=== PATIENT | male | born 1965 | race Caucasian/White ===

== ENCOUNTER 2020-05-19 15:34 | Inpatient (IN) | payer OTHER ==
--- NOTE | 2020-05-19 15:50 | BHS.RME ---
Substance Use & Tx History - Substance Use History Heroin Substance amount: one bag Frequency of use: Less than 3 times per week Substance route: Inhalation (ex: sniffing or snorting) Date of Last Use: 05/18/20 Xanax Substance amount: 4 tabs of ? 2 or 5 mg Frequency of use: Daily Substance route: Oral Date of Last Use: 05/19/20 - Last Treatment Date of last treatment: 2009 Where was last treatment: Detox Physical/Psych/Mental Status - Behavior General Behavior: Decreased activity Eye Contact: Normal - Cooperativeness Cooperativeness: Cooperative - Thinking Thought Processes: Tight Thought content: Future oriented - Physical Health Problems Is patient presently having any pain?: No Does patient presently have any injuries (include location): No Does patient currently have a fever: No CIWA Nausea/Vomitin-No Nausea/No Vomiting Muscle Tremors: None Anxiety: 3 Agitation: 0-Normal Activity Paroxysmal Sweats: 2 Orientation: 0-Oriented Tacttile Disturbances: 0-None Auditory Disturbances: 1-Very Mild Visual Disturbances: 2-Mild Sensitivity Headache: 4-Moderately Severe CIWA-Ar Total Score: 12
--- NOTE | 2020-05-19 18:49 | HP ---
CIWA Score Nausea/Vomitin Muscle Tremors: 3 Anxiety: 3 Agitation: 2 Paroxysmal Sweats: 2 Orientation: 0-Oriented Tacttile Disturbances: 0-None Auditory Disturbances: 0-None Visual Disturbances: 0-None Headache: 4-Moderately Severe CIWA-Ar Total Score: 16 - Admission Criteria [facility]ASAS Guidelines: Admission for Medically Managed Detox: Requires at least one of the followin. CIWA greater than 12 2. Seizures within the past 24 hours 3. Delirium tremens within the past 24 hours 4. Hallucinations within the past 24 hours 5. Acute intervention needed for co occurring medical disorder 6. Acute intervention needed for co occurring psychiatric disorder 7. Severe withdrawal that cannot be handled at a lower level of care (continued vomiting, continued diarrhea, abnormal vital signs) requiring intravenous medication and/or fluids 8. Admission ROS [facility] Chief Complaint: Seeking admission to detox from benzodiazepine, on MMTP. Allergies/Adverse Reactions: Allergies Allergy/AdvReac Type Severity Reaction Status Date / Time Penicillins Allergy Severe Hives Verified 05/19/20 19:13 aspirin Allergy Intermediate Rash Verified 05/19/20 19:14 seafood AdvReac Severe Difficulty Uncoded 05/19/20 19:15 Breathing History of Present Illness: 55 years old male with 20 years of benzodiazepine dependence is seeking admission to detox. His last admission was for the period 06/07/2010-06/11/2010. He reports that he was on prescribed benzodiazepine but was kicked out by his provider Dr. Umm Baltazar and he has been buying Xanax from the street. He uses 6mg tablet Xanax daily. He has medical history of HIV+, Hep. C, cirrhosis of the liver, asthma, anemia, COPD,hypertension, benzodiazepine related seizures, BPH and psych. history of bipolar disorder. He denies suicidal ideation at this time. Patient is unemployed (on SSI), lives alone in a room and denies any legal issues. He reports seizure related to benzodiazepine use and heroin overdose. Patient is on Methadone 130mg tablet oral daily with [facility], [place] Dose is yet to be verified by the nurse. Patient reports that he is on multiple medications for his multiple diagnosis but he does not remember his medications and dosages. Exam Limitations: No Limitations - Ebola screening Have you traveled outside of the country in the last 21 days: No Have you had contact with anyone from an Ebola affected area: No Have you been sick,other than usual withdrawal symptoms: No Do you have a fever: No - Review of Systems Constitutional: Malaise, Night Sweats, Changes in sleep EENT: reports: No Symptoms Reported Respiratory: reports: No Symptoms reported Cardiac: reports: No Symptoms Reported GI: reports: Diarrhea (x 2), Nausea, Poor Appetite, Poor Fluid Intake, Vomiting, Abdominal cramping : reports: No Symptoms Reported Musculoskeletal: reports: Other (abdominal pain) Integumentary: reports: Dryness, Flushing Neuro: reports: Headache, Tremors Endocrine: reports: No Symptoms Reported Hematology: reports: No Symptoms Reported Psychiatric: reports: Orientated x3, Anxious, Depressed Other Systems: Reviewed and Negative Patient History - Patient Medical History Hx Anemia: Yes (Not on medication) Hx Asthma: Yes (Not on medication) Hx Chronic Obstructive Pulmonary Disease (COPD): Yes Hx Cancer: No Hx Cardiac Disorders: No Hx Congestive Heart Failure: No Hx Hypertension: Yes (Lisinoppril) Hx Hypercholesterolemia: No Hx Pacemaker: No HX Cerebrovascular Accident: No Hx Seizures: Yes (Benzo related seizures) Hx Diabetes: No Hx Gastrointestinal Disorders: No Hx Liver Disease: Yes (Hep C, cirrhosis of the liver) Hx Genitourinary Disorders: Yes (BPH) Hx Sexually Transmitted Disorders: No Hx Renal Disease (ESRD): No Hx Thyroid Disease: No Hx Human Immunodeficiency Virus (HIV): Yes (Diagnosed 1988) Hx Hepatitis C: Yes (Hep. C) Hx Depression: No Hx Suicide Attempt: No (Denies suicidal ideation at this time) Hx Bipolar Disorder: Yes Hx Schizophrenia: No - Patient Surgical History Past Surgical History: No - PPD History Previous Implant?: No Documented Results: Negative w/o proof PPD to be Administered?: Yes - Reproductive History Patient is a Female of Child Bearing Age (11 -55 yrs old): No (Male) - Smoking Cessation Smoking history: Never smoked Have you smoked in the past 12 months: No Hx Chewing Tobacco Use: No Initiated information on smoking cessation: No - Substance & Tx. History Hx Alcohol Use: No Hx Substance Use: Yes Substance Use Type: Heroin, Tranquilizers Hx Substance Use Treatment: Yes - Substances abused Alprazolam (Xanax) Substance route: Oral Frequency: Daily Amount used: 6mg tablet Age of first use: 24 Date of last use: 05/19/20 Heroin Substance route: Inhalation Frequency: 1-2 times per week Amount used: 1 bag Age of first use: 19 Date of last use: 05/17/20 Admission Physical Exam [facility] - Physical General Appearance: Yes: Moderate Distress, Tremorous, Irritable, Anxious HEENTM: Yes: Within Normal Limits Respiratory: Yes: Lungs Clear, Normal Breath Sounds, No Respiratory Distress Neck: Yes: Within Normal Limits Breast: Yes: Breast Exam Deferred Cardiology: Yes: Regular Rhythm, Regular Rate Abdominal: Yes: Normal Bowel Sounds Genitourinary: Yes: Within Normal Limits Back: Yes: Normal Inspection Musculoskeletal: Yes: Other (abdomnial pain) Extremities: Yes: Tremors Neurological: Yes: Within Normal Limits Integumentary: Yes: Warm Lymphatic: Yes: Within Normal Limits - Diagnostic (1) Anemia Current Visit: Yes Status: Chronic Qualifiers: Anemia type: unspecified type Qualified Code(s): D64.9 - Anemia, unspecified (2) Asthma Current Visit: Yes Status: Chronic Qualifiers: Asthma severity: mild Asthma persistence: intermittent (3) Hep C w/ coma, chronic Current Visit: Yes Status: Chronic (4) HIV (human immunodeficiency virus infection) Current Visit: Yes Status: Chronic Qualifiers: HIV symptom status: unspecified Qualified Code(s): B20 - Human immunodeficiency virus [HIV] disease (5) Cirrhosis of liver Current Visit: Yes Status: Chronic Qualifiers: Hepatic cirrhosis type: unspecified hepatic cirrhosis Ascites presence: unspecified Qualified Code(s): K74.60 - Unspecified cirrhosis of liver (6) Hypertension Current Visit: Yes Status: Chronic Qualifiers: Hypertension type: essential hypertension Qualified Code(s): I10 - Essential (primary) hypertension (7) BPH (benign prostatic hyperplasia) Current Visit: Yes Status: Chronic (8) Seizures Current Visit: Yes Status: Chronic (9) COPD (chronic obstructive pulmonary disease) Current Visit: Yes Status: Acute Qualifiers: COPD type: unspecified COPD Qualified Code(s): J44.9 - Chronic obstructive pulmonary disease, unspecified (10) Bipolar disorder Current Visit: Yes Status: Chronic Qualifiers: Active/Remission status: remission status unspecified Qualified Code(s): F31.9 - Bipolar disorder, unspecified Cleared for Admission [facility] - Detox or Rehab [facility] Level of Care: Medically Managed Detox Regimen/Protocol: Ativan Claeared for Rehab Admission: No Inpatient Rehab Admission - Rehab Decision to Admit Inpatient rehab admission?: No
[2020-05-19] MEDS ORDERED: MENTHOL/PHENOL 1 EACH UD MM PRN (19:52)
[2020-05-19] MEDS ORDERED: METHOCARBAMOL 500 MG TABLET PO PRN (19:52)
[2020-05-19] MEDS ORDERED: ACETAMINOPHEN 325 MG TABLET (FP) PO PRN ×2 (19:52)
[2020-05-19] MEDS ORDERED: MAGNESIUM CITRATE 300 ML BOTTLE PO PRN (19:52)
[2020-05-19] MEDS ORDERED: MAGNESIUM HYDROX 2400MG/30ML ORAL SUSPENSION 30 ML CUP PO PRN (19:52)
[2020-05-19] MEDS ORDERED: ONDANSETRON *ODT* 4 MG TABLET SL PRN (19:52)
[2020-05-19] MEDS ORDERED: MAG HYDROX/AL HYDROX/SIMETH 30 ML UNIT-DOSE CUP PO PRN (19:52)
[2020-05-19 19:54] VITALS: BMI 30.6
[2020-05-19] MEDS: THIAMINE HCL 100 MG TABLET (FP) PO SCH (22:06)
[2020-05-19] MEDS: LORazepam 2 MG TABLET PO SCH (22:07)
[2020-05-19] MEDS: MELATONIN 5 MG TABLETS PO SCH (22:07)
[2020-05-20] MEDS: LORazepam 1 MG TABLET PO PRN ×2 (00:10→19:37)
[2020-05-20] MEDS: LORazepam 2 MG TABLET PO SCH ×4 (06:12→22:22)
[2020-05-20] MEDS ORDERED: METHADONE HCL 10 MG TABLET PO SCH (09:00)
[2020-05-20] MEDS: PRENATAL VITAMINS W/ FOLIC ACID TABLET (FP) PO SCH (09:32)
[2020-05-20] MEDS ORDERED: METHADONE HCL 10 MG TABLET ONE (11:47)
[2020-05-20] MEDS ORDERED: METHADONE HCL 40 MG DISPERSABLE TABLET ONE (11:48)
[2020-05-20] MEDS: METHADONE 120 MG, METHADONE 10 MG PO SCH (11:49)
--- NOTE | 2020-05-20 11:55 | PN ---
S CIWA - CIWA Score Nausea/Vomitin-No Nausea/No Vomiting Muscle Tremors: 4-Moderate,w/Arms Extend Anxiety: 3 Agitation: 2 Paroxysmal Sweats: 3 Orientation: 0-Oriented Tacttile Disturbances: 0-None Auditory Disturbances: 0-None Visual Disturbances: 0-None Headache: 0-None Present CIWA-Ar Total Score: 12 BHS Progress Note (SOAP) Subjective: Complaints of tremors, chills, anxiety and sweats. Objective: 05/20/20 11:53 Vital Signs 05/20/20 05/20/20 06:00 08:29 Temperature 98 F 96.9 F L Pulse Rate 60 74 Respiratory 18 16 Rate Blood Pressure 136/77 145/81 O2 Sat by Pulse 99 Oximetry (%) Labs pending. Assessment: 05/20/20 11:54 Patient seen and examined, alert and oriented x3, in acute respiratory distress. Full ROM, ambulatory in the unit without assistance. Skin warm to touch without lesions. withdrawal symptoms. Plan: Continue detox protocol. Methadone dosage 130mg was confirmed and started this morning.
[2020-05-20 12:00] LABS: HEMATOCRIT 34.7 % (35.4-49); HEMOGLOBIN 11.8 GM/dL (11.7-16.9); MCH 31.1 pg (25.7-33.7); MEAN CELL VOLUME 91.3 fl (80-96); MEAN PLT VOLUME 8.4 fl (7.5-11.1); PLATELET COUNT 59 K/MM3 (134-434); RDW 13.2 % (11.9-15.9); WHITE BLOOD COUNT 2.1 K/mm3 (4.0-10.0)
[2020-05-20 12:09] LABS: ALBUMIN 4.1 g/dl (3.4-5.0); BILIRUBIN,TOTAL 0.8 mg/dL (0.2-1); BLOOD UREA NITROGEN 30.1 mg/dL (7-18); CALCIUM 8.9 mg/dL (8.5-10.1); CREATININE 2.3 mg/dL (0.55-1.3); POTASSIUM 4.4 mmol/L (3.5-5.1); TOT PROT 8.2 g/dl (6.4-8.2)
--- NOTE | 2020-05-20 14:42 | CONSULT ---
[facility] Psychiatric Consult - Data Date of interview: 05/20/20 Admission source: [facility] Identifying data: Patient is a 55 year old single male, without children, unemployed, domiciled, and is supported with [facility]. Patient admitted to for benzodiazepine dependence. Substance Abuse History: - Smoking Cessation. Smoking history: Never smoked. Have you smoked in the past 12 months: No. Hx Chewing Tobacco Use: No. Initiated information on smoking cessation: No. - Substance & Tx. History. Hx Alcohol Use: No. Hx Substance Use: Yes. Substance Use Type: Heroin, Tranquilizers. Hx Substance Use Treatment: Yes. - Substances abused. Alp razolam (Xanax). Substance route: Oral. Frequency: Daily. Amount used: 6mg tablet. Age of first use: 24. Date of last use: 05/19/20. Heroin. Substance route: Inhalation. Frequency: 1-2 times per week. Amount used: 1 bag. Age of first use: 19. Date of last use: 05/17/20 Medical History: Anemia, asthma, hypertension, Hep C, Seizures ( benzo related) Psychiatric History: Mr. Burris denies history of psychiatric hospitalizations and suicide attempt. States that he was seeing a private psychiatrist in the [place], [place] for several months this year who prescribed him klonopin for anxiety. Patient is no longer in psychiatric care. At present patient reports stable mood. Physical/Sexual Abuse/Trauma History: denies. Additional Comment: Patient states that he is prescribed Methadone 130mg from [facility]. Mental Status Exam - Mental Status Exam Alert and Oriented to: Time, Place, Person Cognitive Function: Good Patient Appearance: Well Groomed Mood: Withdrawn Affect: Mood Congruent Patient Behavior: Fatigued, Cooperative Speech Pattern: Clear Voice Loudness: Mildly Soft/Quiet Thought Process: Goal Oriented Thought Disorder: Not Present Hallucinations: Denies Suicidal Ideation: Denies Homicidal Ideation: Denies Insight/Judgement: Poor Sleep: Fair Appetite: Fair Muscle strength/Tone: Normal Gait/Station: Normal Psychiatric Findings - Problem List ([place] 1, 2,3) (1) Sedative hypnotic or anxiolytic dependence Current Visit: Yes Status: Acute (2) Methadone maintenance therapy patient Current Visit: Yes Status: Acute - Initial Treatment Plan Initial Treatment Plan: Psychoeducation provided. Detoxification in progress. Observation.
[2020-05-20] MEDS: MELATONIN 5 MG TABLETS PO SCH (22:22)
[2020-05-20] MEDS: THIAMINE HCL 100 MG TABLET (FP) PO SCH (22:22)
[2020-05-21] MEDS ORDERED: METHADONE HCL 40 MG DISPERSABLE TABLET ONE (04:30)
[2020-05-21] MEDS ORDERED: METHADONE HCL 10 MG TABLET ONE (04:30)
[2020-05-21] MEDS: METHADONE 120 MG, METHADONE 10 MG PO SCH (05:18)
[2020-05-21] MEDS: LORazepam 1 MG TABLET PO SCH ×4 (05:18→22:06)
--- NOTE | 2020-05-21 07:12 | EKG ---
Test Reason : Blood Pressure : / mmHG Vent. Rate : 066 BPM Atrial Rate : 066 BPM P-R Int : 154 ms QRS Dur : 088 ms QT Int : 418 ms P-R-T Axes : 057 028 058 degrees QTc Int : 438 ms NORMAL SINUS RHYTHM NORMAL ECG NO PREVIOUS ECGS AVAILABLE BASELINE ARTIFACT Confirmed by LONI CERVANTES, GERALD ([id number]) on 05/21/2020 7:12:16 AM Referred By: Confirmed By:GERALD IVEY MD
[2020-05-21] MEDS: PRENATAL VITAMINS W/ FOLIC ACID TABLET (FP) PO SCH (10:10)
--- NOTE | 2020-05-21 10:44 | PN ---
[facility] CIWA - CIWA Score Nausea/Vomitin-No Nausea/No Vomiting Muscle Tremors: 3 Anxiety: 3 Agitation: 2 Paroxysmal Sweats: 3 Orientation: 0-Oriented Tacttile Disturbances: 0-None Auditory Disturbances: 0-None Visual Disturbances: 0-None Headache: 0-None Present CIWA-Ar Total Score: 11 S Progress Note (SOAP) Subjective: Complaints of anxiety, sweats, tremors and chills. Objective: 05/21/20 10:43 Vital Signs 05/21/20 05/21/20 05:00 09:11 Temperature 97.1 F L 98.1 F Pulse Rate 66 74 Respiratory 18 18 Rate Blood Pressure 123/87 123/60 O2 Sat by Pulse 99 99 Oximetry (%) Laboratory Last Values WBC 2.1 K/mm3 (4.0-10.0) L 05/20/20 07:30 RBC 3.80 M/mm3 (4.00-5.60) L 05/20/20 07:30 Hgb 11.8 GM/dL (11.7-16.9) 05/20/20 07:30 Hct 34.7 % (35.4-49) L 05/20/20 07:30 MCV 91.3 fl (80-96) 05/20/20 07:30 MCH 31.1 pg (25.7-33.7) 05/20/20 07:30 MCHC 34.0 g/dl (32.0-35.9) 05/20/20 07:30 RDW 13.2 % (11.9-15.9) 05/20/20 07:30 Plt Count 59 K/MM3 (134-434) L 05/20/20 07:30 MPV 8.4 fl (7.5-11.1) 05/20/20 07:30 Sodium 140 mmol/L (136-145) 05/20/20 07:30 Potassium 4.4 mmol/L (3.5-5.1) 05/20/20 07:30 Chloride 107 mmol/L (98-107) 05/20/20 07:30 Carbon Dioxide 29 mmol/L (21-32) 05/20/20 07:30 Anion Gap 5 MMOL/L (8-16) L 05/20/20 07:30 BUN 30.1 mg/dL (7-18) H 05/20/20 07:30 Creatinine 2.3 mg/dL (0.55-1.3) H 05/20/20 07:30 Est GFR (CKD-EPI)AfAm 35.47 05/20/20 07:30 Est GFR (CKD-EPI)NonAf 30.60 05/20/20 07:30 Random Glucose 95 mg/dL (74-106) 05/20/20 07:30 Calcium 8.9 mg/dL (8.5-10.1) 05/20/20 07:30 Total Bilirubin 0.8 mg/dL (0.2-1) 05/20/20 07:30 AST 20 U/L (15-37) 05/20/20 07:30 ALT 17 U/L (13-61) 05/20/20 07:30 Alkaline Phosphatase 111 U/L (45-117) 05/20/20 07:30 Total Protein 8.2 g/dl (6.4-8.2) 05/20/20 07:30 Albumin 4.1 g/dl (3.4-5.0) 05/20/20 07:30 Syphilis Serology Non-reactive (NONREACTIVE) 05/20/20 07:30 05/21/20 10:44 Labs noted with elevated BUN/CR. Assessment: 05/21/20 10:45 Alert and oriented x3, in no acute respiratory distress. Full ROM, ambulating in the unit without assistance. Withdrawal symptoms. Elevated BUN/CR. Plan: Continue detox protocol encourage increased fluid intake. Repeat BMP in AM.
[2020-05-21] MEDS: LORazepam 1 MG TABLET PO PRN (19:50)
[2020-05-21] MEDS: MELATONIN 5 MG TABLETS PO SCH (22:07)
[2020-05-21] MEDS: THIAMINE HCL 100 MG TABLET (FP) PO SCH (22:07)
[2020-05-22] MEDS ORDERED: LORazepam 0.5 MG TABLET PO PRN
[2020-05-22] MEDS ORDERED: METHADONE HCL 10 MG TABLET ONE (04:17)
[2020-05-22] MEDS ORDERED: METHADONE HCL 40 MG DISPERSABLE TABLET ONE (04:18)
[2020-05-22] MEDS: LORazepam 0.5 MG TABLET PO SCH ×4 (05:12→22:16)
[2020-05-22] MEDS: METHADONE 120 MG, METHADONE 10 MG PO SCH (05:12)
[2020-05-22] MEDS: PRENATAL VITAMINS W/ FOLIC ACID TABLET (FP) PO SCH (10:09)
[2020-05-22 10:58] LABS: BLOOD UREA NITROGEN 26.9 mg/dL (7-18); CALCIUM 8.5 mg/dL (8.5-10.1); POTASSIUM 5.1 mmol/L (3.5-5.1)
--- NOTE | 2020-05-22 11:44 | PN ---
S CIWA - CIWA Score Nausea/Vomitin-Mild Nausea/No Vomiting Muscle Tremors: 2 Anxiety: 2 Agitation: 1-Slight > Activity Paroxysmal Sweats: No Perspiration Orientation: 0-Oriented Tacttile Disturbances: 0-None Auditory Disturbances: 0-None Visual Disturbances: 0-None Headache: 1-Very Mild CIWA-Ar Total Score: 7 BHS Progress Note (SOAP) Subjective: alert,irritable,anxious,interrupted sleep,aching pain Objective: 05/22/20 13:50 Vital Signs Temperature 97.5 F L 05/22/20 12:52 Pulse Rate 64 05/22/20 12:52 Respiratory Rate 18 05/22/20 12:52 Blood Pressure 137/79 05/22/20 12:52 O2 Sat by Pulse Oximetry (%) 97 05/22/20 12:52 05/22/20 07:25 Sodium 138 Potassium 5.1 Chloride 106 Carbon Dioxide 27 Anion Gap 6 L BUN 26.9 H Creatinine 2.0 H Assessment: 05/22/20 13:51 withdrawal symptom, Plan: continue detox ativan regimen,encourage fluid,continue methadone 130 mgs po daily maintenance,discharge in am
[2020-05-22] MEDS: THIAMINE HCL 100 MG TABLET (FP) PO SCH (22:16)
[2020-05-22] MEDS: MELATONIN 5 MG TABLETS PO SCH (22:17)
[2020-05-23] MEDS ORDERED: METHADONE HCL 10 MG TABLET ONE (04:27)
[2020-05-23] MEDS ORDERED: METHADONE HCL 40 MG DISPERSABLE TABLET ONE (04:28)
[2020-05-23] MEDS ORDERED: LORazepam 0.5 MG TABLET PO ONE (05:00)
[2020-05-23] MEDS: METHADONE 120 MG, METHADONE 10 MG PO SCH (05:38)
[2020-05-23 06:08] VITALS: BP 140/93; PULSE 66; TEMP 98
--- NOTE | 2020-05-23 09:38 | DS ---
[facility] Detox Discharge Summary Admission Date: 05/19/20 Discharge Date: 05/23/20 - History Present History: Sedative Dependence, MMTP Additional Comments: alert,oriented x 3 ambulation on the unit lung clear on auscultation bilaterally abdomen soft,no pain detox completed,no withdrawal symptom stable for discharge declined rehab advise to continue hydration,follow up with medical providers for medical issue including leukopenia and renal insufficiency patient also going to follow up with methadone maintenance clinic total time spending on discharge 35 minutes Pertinent Past History: copd seizure withdrawal hiv hepatitis c history of bipolar disorder - Physical Exam Results Vital Signs: Vital Signs Temperature 98.0 F 05/23/20 06:08 Pulse Rate 66 05/23/20 06:08 Respiratory Rate 20 05/23/20 06:08 Blood Pressure 140/93 05/23/20 06:08 O2 Sat by Pulse Oximetry (%) 98 05/23/20 06:08 Pertinent Admission Physical Exam Findings: withdrawal signs and symptom Vital Signs Temperature 98.0 F 05/23/20 06:08 Pulse Rate 66 05/23/20 06:08 Respiratory Rate 20 05/23/20 06:08 Blood Pressure 140/93 05/23/20 06:08 O2 Sat by Pulse Oximetry (%) 98 05/23/20 06:08 Laboratory Last Values WBC 2.1 K/mm3 (4.0-10.0) L 05/20/20 07:30 RBC 3.80 M/mm3 (4.00-5.60) L 05/20/20 07:30 Hgb 11.8 GM/dL (11.7-16.9) 05/20/20 07:30 Hct 34.7 % (35.4-49) L 05/20/20 07:30 MCV 91.3 fl (80-96) 05/20/20 07:30 MCH 31.1 pg (25.7-33.7) 05/20/20 07:30 MCHC 34.0 g/dl (32.0-35.9) 05/20/20 07:30 RDW 13.2 % (11.9-15.9) 05/20/20 07:30 Plt Count 59 K/MM3 (134-434) L 05/20/20 07:30 MPV 8.4 fl (7.5-11.1) 05/20/20 07:30 Sodium 138 mmol/L (136-145) 05/22/20 07:25 Potassium 5.1 mmol/L (3.5-5.1) 05/22/20 07:25 Chloride 106 mmol/L (98-107) 05/22/20 07:25 Carbon Dioxide 27 mmol/L (21-32) 05/22/20 07:25 Anion Gap 6 MMOL/L (8-16) L 05/22/20 07:25 BUN 26.9 mg/dL (7-18) H 05/22/20 07:25 Creatinine 2.0 mg/dL (0.55-1.3) H 05/22/20 07:25 Est GFR (CKD-EPI)AfAm 41.99 05/22/20 07:25 Est GFR (CKD-EPI)NonAf 36.23 05/22/20 07:25 Random Glucose 93 mg/dL (74-106) 05/22/20 07:25 Calcium 8.5 mg/dL (8.5-10.1) 05/22/20 07:25 Total Bilirubin 0.8 mg/dL (0.2-1) 05/20/20 07:30 AST 20 U/L (15-37) 05/20/20 07:30 ALT 17 U/L (13-61) 05/20/20 07:30 Alkaline Phosphatase 111 U/L (45-117) 05/20/20 07:30 Total Protein 8.2 g/dl (6.4-8.2) 05/20/20 07:30 Albumin 4.1 g/dl (3.4-5.0) 05/20/20 07:30 Syphilis Serology Non-reactive (NONREACTIVE) 05/20/20 07:30 COVID-19 ([facility]) Not detected (Not Detected) 05/19/20 19:50 - Medication Discharge Medications: Ambulatory Orders NK [No Known Home Medication] 05/19/20 - Diagnosis (1) Sedative hypnotic or anxiolytic dependence Status: Acute (2) COPD (chronic obstructive pulmonary disease) Status: Acute Qualifiers: COPD type: unspecified COPD Qualified Code(s): J44.9 - Chronic obstructive pulmonary disease, unspecified (3) Methadone maintenance therapy patient Status: Acute (4) BPH (benign prostatic hyperplasia) Status: Chronic (5) HIV (human immunodeficiency virus infection) Status: Chronic Qualifiers: HIV symptom status: unspecified Qualified Code(s): B20 - Human immunodeficiency virus [HIV] disease (6) Hep C w/ coma, chronic Status: Chronic (7) Hypertension Status: Chronic Qualifiers: Hypertension type: essential hypertension Qualified Code(s): I10 - Essential (primary) hypertension (8) Seizures Status: Chronic (9) H/O renal insufficiency syndrome Status: Acute (10) Leukopenia Status: Acute - AMA Did Patient Leave Against Medical Advice: No
--- NOTE | 2020-05-23 09:38 | PN ---
[facility] CIWA - CIWA Score Nausea/Vomitin-No Nausea/No Vomiting Muscle Tremors: None Anxiety: 1-Mildly Anxious Agitation: 0-Normal Activity Paroxysmal Sweats: No Perspiration Orientation: 0-Oriented Tacttile Disturbances: 0-None Auditory Disturbances: 0-None Visual Disturbances: 0-None Headache: 0-None Present CIWA-Ar Total Score: 1 S Progress Note (SOAP) Subjective: alert,no complaint Objective: 05/23/20 10:44 Vital Signs Temperature 98.0 F 05/23/20 06:08 Pulse Rate 66 05/23/20 06:08 Respiratory Rate 20 05/23/20 06:08 Blood Pressure 140/93 05/23/20 06:08 O2 Sat by Pulse Oximetry (%) 98 05/23/20 06:08 Assessment: 05/23/20 10:44 detox completed,no withdrawal symptom Plan: stable for discharge today,follow up with after care program as arrangement
== END 2020-05-23 09:10 | disposition home or self-care (01) | DRG 773 ==
LOC: YASAS 15:34 → Y6N 19:24
PROVIDERS: ADMIT Allergy & Immunology; ATTEND Allergy & Immunology
PROC: HZ2ZZZZ Detoxification Services for Substance Abuse Treatment (ICD-10-PCS; principal; 2020-05-19)
DX: F13.230 Sedative, hypnotic or anxiolytic dependence with withdrawal, uncomplicated (principal); F11.20 Opioid dependence, uncomplicated; F31.9 Bipolar disorder, unspecified; Z21 Asymptomatic human immunodeficiency virus [HIV] infection status; G40.509 Epileptic seizures related to external causes, not intractable, without status epilepticus; I10 Essential (primary) hypertension; J44.9 Chronic obstructive pulmonary disease, unspecified; J45.20 Mild intermittent asthma, uncomplicated; D64.9 Anemia, unspecified; D72.819 Decreased white blood cell count, unspecified; K74.60 Unspecified cirrhosis of liver; B18.2 Chronic viral hepatitis C; N40.0 Benign prostatic hyperplasia without lower urinary tract symptoms; Z87.448 Personal history of other diseases of urinary system; Z88.0 Allergy status to penicillin; Z88.6 Allergy status to analgesic agent; Z91.013 Allergy to seafood
CPT/HCPCS: 36415; 80048; 80053; 85027; 86780; 93005; 93010; C9803; U0003